=== PATIENT | female | born 1990 | race Caucasian/White ===

== ENCOUNTER 2016-12-04 15:33 | Emergency (ER) | payer OTHER ==
--- NOTE | 2016-12-06 13:19 | ER ---
ADMIT: 12/04/2016 RM/LOC: ER [facility] MR#: [id number] [address] [address] ANDRES DUNCAN [address] [place] [address] Emergency Room Report SEX: F AGE: 26 : 1990 DATE: 12/04/2016 CHIEF COMPLAINT: Possible miscarriage. HISTORY OF PRESENT ILLNESS: This is a 26-year-old female, who presents with some vaginal bleeding and cramping for the past 7 days. The patient states her last menstrual period was October 24. She did take an at home test which confirmed . She was in to see Dr. Felix on Friday. They vanesa a beta hCG level on her which was 604. She comes in today complaining of some low back pain, cramping and spotting. Denies any fever, chills, shortness of breath. PAST MEDICAL HISTORY: Hypertension. She is G2, P1. COURSE IN THE EMERGENCY ROOM: The patient was seen and examined. Blood pressure 166/101, heart rate 92, respirations 14, temp 98.3. Physical exam; she is in no acute distress. She is alert. She has some tenderness in the right lower quadrant. Pelvic exam; no active bleeding was seen. The cervix is closed. No cervical motion tenderness. No adnexal tenderness. No CVA tenderness. Did get lab studies on her today, shows white count 9.1, hemoglobin 13.6, hematocrit 39.8, platelets 300. Chemistries; sodium 140, potassium 3.8, BUN 10, creatinine 0.9, AST 16, ALT 21. Her beta HCG was 524. Type and screen shows O positive urine. No signs of acute infection. Transvaginal ultrasound was completed, shows no intrauterine . IMPRESSION: Vaginal bleeding. DISPOSITION: The patient was instructed to follow up with Dr. Felix within the next week, call to make this appointment. Return with worsening signs or symptoms. Continue home medications. Increase fluids as tolerated. Return with worsening signs or symptoms or follow up with primary care doctor. Questions sought and answered to the best of my ability and to the patient's satisfaction. Discharged in stable condition. MACK Figueroa / Lincoln Lares MD / aj JOB #: [id number] CC: Lincoln Lares MD, Attending Physician Tatyana Caro MD, Family Physician
[2016-12-18] MEDS ORDERED: [UNRECOGNIZED DRUG - OTHER] PO (15:39)
== END 2016-12-04 18:15 | disposition home or self-care (01) ==
LOC: ER 15:33
DX: O20.9 Hemorrhage in early pregnancy, unspecified (principal); O16.1 Unspecified maternal hypertension, first trimester

== ENCOUNTER 2016-12-16 21:09 | Observation (INO) | payer OTHER ==
[~2016-12-16] VITALS: Ht 147.3 cm; Wt 69.7 kg
--- NOTE | 2016-12-17 06:13 | ER ---
ADMIT: 12/17/2016 RM/LOC: 415 [facility] MR#: [id number] [address] [address] ANDRES DUNCAN [address] [place] [address] Emergency Room Report SEX: F AGE: 26 : 1990 DATE: 12/16/2016 CHIEF COMPLAINT: Overdose. HISTORY OF PRESENT ILLNESS: The patient is a 26-year-old female, who overdosed at 8:30 tonight with acetaminophen 325, #30; Abilify 5 mg, #10; multiple mixed drinks; and hydrocodone 5/325, x5. Sister immediately called 911 and transported by [facility]. The patient states she was depressed over life. Her boyfriend and her had a fight today. She was miscarrying with declining hCGs confirmed by Dr. Caro. Most recent hCG 550. PAST MEDICAL HISTORY: ALLERGIES: NONE. MEDICATIONS: See nurse's MAR. ILLNESSES: Migraines and depression. OPERATIONS: and right elbow. SOCIAL HISTORY: Occasional alcohol. No illicit drugs. Single, employed in city of [place]. FAMILY HISTORY: Positive for bipolar in mother. REVIEW OF SYSTEMS: A 12-point review of systems negative for all other systems, illnesses, or operations except as outlined above. PHYSICAL EXAMINATION: VITAL SIGNS: Temp 98.6, pulse 99, respirations 16, BP 156/97, SaO2 of 99% on room air. Weight 69 pounds. GENERAL: No acute distress. Non-diaphoretic without jaundice or icterus. HEENT: Normocephalic. No evidence of epistaxis, rhinorrhea, or otorrhea. NECK: Supple without lymphadenopathy or thyromegaly. Good carotid upstroke and volume without bruit. CHEST: Clear. Breath sounds equal without rales, rhonchi, or wheeze. HEART: Regular rate and rhythm without murmur, gallop, or edema. ABDOMEN: Soft, nontender, and nondistended without mass or megaly. Bowel sounds hypoactive. EXTREMITIES: No evidence of Homans sign, synovitis, or dermatitis. NEURO: EOMI. PERRLA. No evidence of drift, dysarthria, or ataxia. Gait normal. Mental status: Alert, oriented, depressed mood, admits to suicidal gesture. MEDICAL DECISION MAKING: Normal CBC and CMP. Alcohol 94. Tox screen, positive barbiturates. Acetaminophen level 100 on arrival, 4-hour delta 55, salicylate 2.3. HCG 165 down from 550 two weeks ago. O positive. UA negative. EKG shows sinus tachycardia with incomplete left bundle-branch block, low voltage. The patient was treated per poison control protocol with ADMIT: 12/17/2016 RM/LOC: 415 [facility] MR#: [id number] [address] [address] MAR[address]AAN[address]ES [address] [place] [address] Emergency Room Report SEX: F AGE: 26 : 1990 1 g/kilo activated charcoal which she tolerated well. Notified Melissa Irby who declined transfer until the patient was monitored for [address] Caro of admission, who agreed and gave orders to nursing staff. Due to the patient's presentation, findings, and intervention, 30 minutes of critical care is warranted. DIAGNOSES: 1. Suicidal depression. 2. Acetaminophen overdose. 3. Alcoholic intoxication. 4. Bipolar history in family. RECOMMENDATION: Admit inpatient telemetry for Dr. Caro admission. Discharge condition is good. CODE STATUS: The patient is a full code. Sascha Li MD/ aj JOB #: [id number] CC: Tatyana Caro MD, Attending Physician Tatyana Caro MD, Family Physician
[2016-12-18] MEDS ORDERED: [UNRECOGNIZED DRUG - OTHER] PO (15:39)
--- NOTE | 2016-12-20 08:10 | HP ---
ADMIT: 12/17/2016 RM/LOC: 415 [facility] MR#: [id number] [address] [address] ANDRES DUNCAN [address] [place] [address] History and Physical SEX: F AGE: 26 : 1990 DATE OF SERVICE: CHIEF COMPLAINT: Suicide attempt. HISTORY OF PRESENT ILLNESS: Andres is a pleasant 26-year-old, female, well known to myself from outpatient clinic who has been struggling with major depressive disorder that has recently worsened due to a miscarriage. She actually started seeing counseling about 2 weeks ago and had expressed some suicidal thoughts to her counselor, so was referred to my office about one week ago. At that point, we set up a suicide plan and initiated her on an SSRI. She says she did not yet garbage pick up man medications, so has not started it. She was at home with her boyfriend yesterday and was drinking alcohol. She said she got to a point where she knows she should stop but continued to drink. With this, she said her mood suddenly worsened, and she became very irritable. She then tried to harm herself by ingesting numerous medications that she had at home. Medications included Tylenol, hydrocodone, and Abilify. She has not had the Abilify prescribed, and has not had those medications prescribed for her, but says they were just "left over." She is not quite sure how many tablets of each she took. She took this about 8:30 p.m. last evening. She then presented to the emergency department and was given charcoal. She had some vomiting with that. Poison control was contacted through the emergency department and their recommendations were followed. Inpatient psychiatric care at [facility] was also consulted and recommended she be admitted for medical management of her overdose here with plan for inpatient psych once medically stable. This morning she says she feels fine. She has no physical complaints. She does still report depressive symptoms and says that she has no active suicidal thoughts at this moment. She is mostly concerned that she will miss additional work and that will be an additional financial stressor. PAST MEDICAL HISTORY: 1. Major depressive disorder. 2. Recent first-trimester spontaneous . 3. Migraine headaches. MEDICATIONS: 1. Fioricet as needed for migraine headaches. 2. SSRI was recently prescribed for her depression, although she has not yet filled this medication. ALLERGIES: NO KNOWN MEDICAL ALLERGIES. SOCIAL HISTORY: The patient lives at home with a boyfriend. She works for the local [employer]. She drinks alcohol and smokes. FAMILY HISTORY: Unknown. REVIEW OF SYSTEMS: As per HPI. Others reviewed and negative. ADMIT: 12/17/2016 RM/LOC: 415 [facility] MR#: [id number] [facility] [address] [address] [address]ES [address] [place] [address] History and Physical SEX: F AGE: 26 : 1990 PHYSICAL EXAMINATION: GENERAL: The patient is awake, alert, and in no acute distress. She is cooperative. HEENT: Within normal limits. HEART: Regular rate and rhythm. No murmurs. LUNGS: Clear to auscultation bilaterally. No crackles or wheezes. ABDOMEN: Soft, nontender, and nondistended. No organomegaly. EXTREMITIES: Warm and dry. No pretibial edema. SKIN: No obvious rash or lesion. NEUROLOGIC: Cranial nerves II through XII grossly intact. No focal neurologic deficit. PSYCHIATRIC: The patient has a flat affect. No obvious hallucinations or delusions. She denies suicidal ideation at this time. LABORATORY DATA: Please see electronic record for full details. But of note, her LFTs are within normal limits with the most recent AST of 13, ALT of 24. Tylenol level on admission was 99.7, which trended down to 55 and is currently 16.9, which is within normal limits. TSH normal at 1.51. Drug screen was positive for barbiturates. ASSESSMENT AND PLAN: 1. Multi-drug overdose. She is currently stable medically. 2. Suicide attempt. Given several weeks of suicidal comments as documented by her counselor. I do agree with inpatient psychiatric monitoring and development of a treatment plan by Psychiatry. 3. Major depressive disorder. We will treat as above. 4. Recent spontaneous . Her beta-HCG has continued to decline. This is likely contributing to worsening of her mood symptoms as well. DISPOSITION: Once the patient is medically cleared, likely later today, we will plan to transfer to [facility] for further psychiatric evaluation. Tatyana Caro MD/ aj JOB #: [id number] CC: Tatyana Caro, Attending Physician Tatyana Caro, Family Physician
--- NOTE | 2017-01-01 08:19 | DS ---
ADMIT: 12/17/2016 RM/LOC: 415 [facility] MR#: [id number] [address] [address] ANDRES DUNCAN [address] [place] [address] General Discharge Summary SEX: F AGE: 26 : 1990 ADMISSION DATE: 12/17/2016 DISCHARGE DATE: 12/17/2016 DISCHARGE DIAGNOSES: 1. Attempted suicide. 2. Major depressive disorder. 3. Multi-drug overdose. 4. Recent spontaneous . 5. Alcohol abuse. CONSULT: OPERATIONS TRAINER, Dr. Andersen. PROCEDURES: None. REASON FOR ADMISSION: The patient admitted from the Emergency Department after presenting by ambulance for multi-drug overdose in a suicide attempt. She was admitted for medical management with plan for transfer to inpatient psychiatric treatment. HOSPITAL COURSE: The patient was admitted to telemetry observation. Tylenol levels were monitored, but did not meet criteria for Mucomyst. She was hydrated with IV fluids. By the following morning, her labs have continued to improve and she was medically stable. She did have a known spontaneous about one week prior to her admission. Therefore, serum beta hCGs were drawn and had trended downward. It is recommend that she be transferred to [facility] for inpatient psychiatric treatment of her depression. Upon psychiatric evaluation, they recommended OB clearance prior to transfer, therefore OPERATIONS TRAINER was consulted. A transvaginal ultrasound was performed, and was free of retained products in the uterus. OPERATIONS TRAINER therefore felt she was also stable medically for transfer. DISCHARGE MEDICATIONS: Fiorinal p.r.n. headache. DISCHARGE INSTRUCTIONS: The patient was discharged in stable medical condition to [facility]. She will follow up with myself following discharge from [facility] Tatyana aCro MD/ ja JOB #: [id number] CC: Tatyana Caro MD, Attending Physician Tatyana Caro MD, Family Physician
--- NOTE | 2017-01-20 09:31 | CO ---
ADMIT: 12/17/2016 RM/LOC: 415 [facility] MR#: [id number] [address] [address] ANDRES DUNCAN [address] [place] [address] Consultation SEX: F AGE: 26 : 1990 DATE OF CONSULTATION: 12/17/2016 ATTENDING PHYSICIAN: Tatyana Caro CONSULTING PHYSICIAN: Roselia Andersen MD REASON FOR CONSULTATION: Recent spontaneous . HISTORY OF PRESENT ILLNESS: The patient is a 26-year-old 2 para 1-0-0- 1 who presented to the emergency room on the evening of 12/16/2016, due to multi-drug overdose. This was done as a suicide attempt. The patient was to be transferred to [facility] for further inpatient psychiatric care. The patient's recent history is significant for spontaneous . The patient had a positive test in mid November and shortly thereafter started having vaginal bleeding and on December 04, she presented to the emergency room with bleeding. At that time, beta HCG level was 524. The patient then did follow up in the [facility] and was noted to have decreasing HCG titers. The patient was therefore diagnosed with a spontaneous . Her most recent hCG titer on December 11 at the [facility] was 511. DUST SAMPLER consult was obtained to rule out the need for any surgical treatment of the spontaneous prior to her transfer of care. PAST MEDICAL HISTORY: Depression and migraine headaches. PAST SURGICAL HISTORY: section x1 and elbow surgery at age 5. CURRENT MEDICATIONS: Fioricet as needed for headaches. ALLERGIES: NO KNOWN MEDICAL ALLERGIES. SOCIAL HISTORY: The patient smokes 1 pack of cigarettes per day. She drinks alcohol, but denies any drug use. FAMILY HISTORY: Significant for mother with hypertension. REVIEW OF SYSTEMS: Per history of present illness, others reviewed and were negative. PHYSICAL EXAMINATION: VITAL SIGNS: Temperature 97.6, pulse 67, respirations 20, blood pressure 113/62. GENERAL: Patient is alert and oriented, no acute distress. HEART: Regular rate and rhythm without murmurs, gallops, or rubs. LUNGS: Clear to auscultation bilaterally. ABDOMEN: Soft, nontender, and nondistended. Positive bowel sounds. EXTREMITIES: No edema. No calf tenderness. LABORATORY DATA: Beta hCG level 165. CBC; white count 6.3, hemoglobin 12.8, hematocrit 38.3, and platelets 275. Comprehensive metabolic panel; sodium 146, potassium 3.8, chloride 111, CO2 of 23, BUN 6, creatinine 0.9, AST 15, ADMIT: 12/17/2016 RM/LOC: 415 [facility] MR#: [id number] [address] [address] [address] [place] [address] Consultation SEX: F AGE: 26 : 1990 ALT 30, and magnesium 2.1. Pelvic ultrasound; normal-appearing uterus, 6.5 x 3.6 x 4.4 cm. A 6 mm endometrial stripe. The left ovary shows 2.5 x 2.3 complex cyst or hemorrhagic follicle in the left ovary and right ovary appears normal. There is no evidence of ectopic noted on ultrasound. ASSESSMENT AND PLAN: 1. A 26-year-old female with depression and multi-drug overdose for suicide attempt. 2. Recent spontaneous . The patient's beta HCG level has declined significantly since it was last checked on December 11 and does appear to be decreasing normally at this point. Pelvic ultrasound was also negative for any retained products of conception or ectopic . At this point, I do feel that the patient would be stable for transfer to [facility] and she will follow up with Dr. Caro or Dr. Felix to follow hCG titer to 0. Roselia A Ganesh, MD/ aj JOB #: [id number] CC: Tatyana Caro, Attending Physician Tatyana Caro, Family Physician
== END 2016-12-17 18:30 ==
LOC: ER 21:09 → 4PCU 12-17 01:23
PROVIDERS: ADMIT Family Medicine
DX: T50.902A Poisoning by unspecified drugs, medicaments and biological substances, intentional self-harm, initial encounter (principal); F32.9 Major depressive disorder, single episode, unspecified; O03.9 Complete or unspecified spontaneous abortion without complication; F17.210 Nicotine dependence, cigarettes, uncomplicated; G43.909 Migraine, unspecified, not intractable, without status migrainosus; Z98.890 Other specified postprocedural states